=== PATIENT | male | born 1955 | race Caucasian/White ===

== ENCOUNTER → 2017-07-22 | Emergency (ER) | payer OTHER ==
[~2017-07-22] VITALS: Ht 167.6 cm; Wt 65.8 kg
[~2017-07-22] MED LIST: TAMS0.4C PO; TUSSI PRES-B L120 M1 PO
== END | disposition home or self-care (01) ==
LOC: ER 08:33
DX: B34.9 Viral infection, unspecified (principal)

== ENCOUNTER 2018-01-29 12:10 | Emergency (ER) | payer OTHER ==
[~2018-01-29] VITALS: Ht 167.6 cm; Wt 68.0 kg
[2018-01-29] MEDS ORDERED: CARDURA1 MG PO (12:34)
== END 2018-01-29 18:33 | disposition home or self-care (01) ==
LOC: ER 12:10
DX: K29.70 Gastritis, unspecified, without bleeding (principal)

== ENCOUNTER 2018-11-18 07:49 | Emergency (ER) | payer OTHER ==
[~2018-11-18] VITALS: Ht 167.6 cm; Wt 70.3 kg
[~2018-11-18 07:49] MED LIST changes: +CARDURA1 MG PO
[2018-11-18] MEDS ORDERED: CARDURA1 MG (08:23)
== END 2018-11-18 15:10 | disposition home or self-care (01) ==
LOC: ER 07:49 → CPU-OBS 07:51 → ER 07:51
DX: R07.89 Other chest pain (principal)
CPT/HCPCS: G0378; G0379; 93005